=== PATIENT | male | born 1990 | race African-American/Black ===

== ENCOUNTER → 2018-07-28 | Outpatient (CLI) | payer OTHER ==
[2018-07-28 07:18] LABS: COLLECTION METHOD DRY COLLECTION; SPECIMEN CONTAINER POLYPROPYLENE CUP; SPERM MORPHOLOGY SENT TO REFERENC LAB
[2018-07-28 08:54] LABS: DAYS ABSTINENT 4 DAYS (2-7)
[2018-07-28 08:55] LABS: COLLECTION SITE OFF-SITE
[2018-07-28 08:59] LABS: ROUND CELL CONC. 7.8 X10^6/mL (<5.1); SA DILUTION CNT 1 278; SA DILUTION CNT 2 337; SA DILUTION FACTOR 3; SA NONMOTILE COUNT1 601; SA NONMOTILE COUNT2 678; SA ROUND CELL COUNT1 74; SA ROUND CELL COUNT2 82; SA SPERM MOTILE CONC 28.3 X10^6mL; SEMEN TESTING TIME 730; SPERM CONCENTRATION 92.3 X10^6/mL (>12.0); TOTAL SPERM COUNT 101.5 X10^6 (>33.0)
[2018-07-28 09:00] LABS: SPERM PROGRESSION 3
[2018-07-28 09:34] LABS: PERCENT NONMOTILE SPERM 69 %; PERCENT VIABLE 76 %; SEMEN VIABILITY STAINED 63; SEMEN VIABILITY UNSTAINED 199; SPERM VIABILITY 83 % (>55); TOTAL VIABILITY COUNT 262
== END ==
LOC: LAB 07:12
PROVIDERS: ATTEND Specialist
DX: N46.9 Male infertility, unspecified (principal)
CPT/HCPCS: 89320